=== PATIENT | male | born 1995 | race Two or more races ===

== ENCOUNTER 2024-03-30 03:15 | Emergency (ER) | payer OTHER, SELFPAY ==
[2024-03-30 03:36] VITALS: BP 126/80; PULSE 115; RESP 18; TEMP 37.1; O2SAT 95
--- NOTE | 2024-03-30 03:55 | XR_ITS ---
Examination: CT abdomen with intravenous contrast CT pelvis with intravenous contrast 2-D coronal reconstructions 2-D sagittal reconstructions Date and time of exam:March 30, 2024 0532 hrs. Indications: Abdominal pain diarrhea beginning 3 days ago. CTDI: vol (mGy) 7.24 DLP: (mGycm) 452 Technique: Multiple axial sections of the abdomen and pelvis have been obtained. 64 slice high-resolution scanner used. 3 mm axial sections have been obtained, post intravenous injection 60 cc [id number] 2-D sagittal, coronal reconstructions obtained. Low dose protocols were performed. One or more of the following dose reduction techniques were used; automated exposure control, adjustment of the mA and/or KV according to patient size, use of iterative reconstruction technique. Findings: Liver is mildly irregular in contour, no focal liver or splenic lesions Contracted gallbladder Contrast in the stomach clinical correlation advised No pancreatic mass No renal or ureteral calculi, no hydronephrosis Aorta normal size Normal appendix No bowel obstruction There is mild wall thickening involving the sigmoid colon and rectum No prostatomegaly Urinary bladder intact Impression: Suspect primary hepatocellular disease Contrast in stomach, clinical correlation advised, this is not a CTA study Normal appendix Mild nonspecific colitis rectosigmoid
--- NOTE | 2024-03-30 03:57 | EDRME_ITS ---
Rapid Medical Screening Exam [facility] Arrival date/time: 03/30/24 03:15 29M with history of asthma presents to ED with several days of gen ab pain and non-bloody diarrhea to the point where he is soiling himself. Separately, his asthma is acting up. Patient denies drug/alcohol use () and recent travel. Chief Complaint: Abdominal Pain Vital signs: Vital Signs Temperature 98.7 F 03/30/24 03:36 Pulse Rate 115 H 03/30/24 03:36 Respiratory Rate 18 03/30/24 03:36 Blood Pressure 126/80 03/30/24 03:36 Pulse Oximetry (%) 95 03/30/24 03:36 Oxygen Delivery Method Room Air 03/30/24 03:36
--- NOTE | 2024-03-30 03:57 | XR_ITS ---
Examination: AP chest single view Technique one AP portable upright chest single view Exam date and time: March 30, 2024 0402 hrs. Comparison May 22, 2010 Findings: Mild to moderate hyperexpansion Normal heart size Accentuation bronchovascular markings No lobar pneumonia Impression: Bronchitis pattern
[2024-03-30] MEDS: SODIUM CHLORIDE 0.9% 1000 ML 1,000 ML 999 ML IV (04:11)
[2024-03-30] MEDS: ALBUTEROL/IPRATROPIUM (Duoneb) RT SOL 3 ML NEBU 6 ML INH (04:12)
[2024-03-30] MEDS: DEXAMETHASONE SOD PHOS INJ 10 MG/ML VIAL IV (04:12)
[2024-03-30 04:13] VITALS: PULSE 108; RESP 20; O2SAT 100
[2024-03-30 04:54] LABS: Lactate (Lactic Acid) 1.3 mMol/L (0.4-2.0)
[2024-03-30 04:59] LABS: Basophils % (Auto) 1 % (0-2.5); Eosinophils # (Auto) 0.1 Thou/mm3 (0.0-0.5); Eosinophils % (Auto) 1 % (0-10); Hematocrit 41.6 % (41.0-53.0); Hemoglobin 14.8 g/dL (13.5-16.0); Immature Granulocytes % (Auto) 0 % (0-0); Immature Granulocytes Auto 0.01 Thou/mm3 (0.00-0.00); Lymphocytes % (Auto) 34 % (10-50); Mean Corpuscular HGB Conc 35.6 g/dl (31.0-37.0); Mean Corpuscular Hemoglobin 30.9 pg (25.0-35.0); Mean Corpuscular Volume 87 fL (80-100); Monocytes % (Auto) 17 % (0-12); Neutrophils # (Auto) 2.8 Thou/mm3 (1.8-7.7); Neutrophils % (Auto) 47 % (37-80); Nucleated Red Blood Cell % 0 /100 WBC (0); Platelet Count 145 Thou/mm3 (140-440); RDW Standard Deviation 39.2 fL (35.1-43.9); Red Blood Count 4.79 Miln/mm3 (4.50-5.90); White Blood Count 5.9 Thou/mm3 (3.8-10.6)
[2024-03-30 05:20] LABS: Alanine Aminotransferase 23 U/L (10-49); Albumin, Serum 4.2 gm/dL (3.5-5.0); Albumin/Globulin Ratio 1.7 (1.2-2.2); Alkaline Phosphatase 57 U/L (46-116); Anion Gap 9 (7-16); Aspartate Amino Transferase 20 U/L (0-34); BUN/Creatinine Ratio 13 Ratio (12-20); Bilirubin,Total 0.7 mg/dL (0.3-1.2); Blood Urea Nitrogen 13 mg/dL (9-23); Carbon Dioxide 26.2 mMol/L (20.0-31.0); Chloride 100 mMol/L (98-107); Globulin 2.5 gm/dL (2.3-3.5); Glucose 121 mg/dL (74-106); Lipase 27 U/L (12-53); Osmolality,Calculated 271 (275-295); Sodium 135 mMol/L (136-145); Total Protein 6.7 gm/dL (5.7-8.2); eGFR > 60 See Note
[2024-03-30 05:22] VITALS: BP 122/67; PULSE 116; RESP 16; TEMP 37.6; O2SAT 95
[2024-03-30 05:23] LABS: Potassium 2.7 mMol/L (3.4-5.1)
[2024-03-30] MEDS: POTASSIUM CHLORIDE 20 mEq TABCR 40 MEQ PO ×2 (05:34→07:18)
[2024-03-30] MEDS: ONDANSETRON INJ 2 MG/ML INJ 2 ML 4 MG IV (05:34)
[2024-03-30 06:16] LABS: Magnesium 1.6 mg/dL (1.6-2.6)
[2024-03-30 06:44] LABS: Collection Type, Urine Clean Catch; RBC,Urine 0 /hpf (0-3); WBC,Urine 0 /hpf (0-5)
--- NOTE | 2024-03-30 06:48 | PRELIM_ITS ---
CT scan of the abdomen and pelvis with intravenous contrast (axial sections with sagittal and coronal reformats) March 30, 2024 0532 hoursClinical History: Gen abdominal pain and non-bloody diarrhea; soiling selfComparison: No prior study is available for comparisonFindings:Ground-glass opacities ar e noted in the right lower lobe.The liver, gallbladder, pancreas, spleen, kidneys, and adrenals are u nremarkable.An intraluminal hyperdensity seen in the stomach may represent residual oral contrast fro m the recent examination.No evidence of bowel obstruction. The appendix is within normal limits (imag es [id number], series 2).There is mild thickening versus underdistention of the descending and sigmoid c olon with surrounding hyperemia. In the appropriate clinical setting, the possibility of mild colitis cannot be excluded. Recommend clinical correlation.There is no mesenteric or retroperitoneal adenopa thy.The urinary bladder demonstrates mild diffuse wall thickening with subtle perivesical fat strandi ng. There is no free fluid or free air.The osseous structures are unremarkable.Impression:1. Mild thi ckening versus underdistention of the descending and sigmoid colon. In the appropriate clinical setti ng, the possibility of mild colitis cannot be excluded. Recommend clinical correlation.2. Possible mi ld cystitis.3. Possible intraluminal residual oral contrast in the stomach (limited evaluation for ga strointestinal bleeding). Report Electronically Signed By: Meme David 03/30/2024 6:47:08 AM [EST]
--- NOTE | 2024-03-30 06:51 | EDNOTE_ITS ---
Nausea/Vomit./Diarrhea-RME/HPI General Chief complaint: Abdominal Pain Stated complaint: ABD PAIN, DIARRHEA, ASTHMA ACTING UP Time Seen by Provider: 03/30/24 04:16 Arrival date/time: 03/30/24 03:15 Limitations: no limitations RME / HPI RME / HPI Narrative: 03/30/24 03:15 29M with history of asthma presents to ED with several days of gen ab pain and non-bloody diarrhea to the point where he is soiling himself. Separately, his asthma is acting up. Patient denies drug/alcohol use () and recent travel. DR. TELMA PEREZ ED EVALUATION: 29 year old male with history of asthma presents to the ED for complaint of diarrhea beginning 3 days ago. Diarrhea described as watery in consistency that is nonbloody. States in the last day he is now soiling himself while sleeping which has concerned him. Patient additionally reports feeling short of breath and my asthma is acting up . Denies fevers, chills, sweats, chest pain, abdominal pain, nausea, vomiting, or urinary symptoms. Denies recent travel, eating new/unusual foods, or sick contacts with similar symptoms. Related Data Home Medications ?Medication ?Instructions ?Recorded ?Confirmed albuterol sulfate 90 mcg/actuation 6.7 gm IH [id number] ##0 12/23/08 aerosol inhaler (Proventil HFA) Previous Rx's ?Medication ?Instructions ?Recorded hydroxyzine HCl 25 mg tablet 1 - 2 tab PO [id number] ##30 04/23/12 clotrimazole 1 % topical cream 1 applic topical BID #15 grams 03/05/21 mupirocin 2 % topical ointment 1 applic topical BID #15 grams 03/05/21 albuterol sulfate 90 mcg/actuation 2 puff inhalation Q6H PRN 03/30/24 aerosol inhaler shortness of breath or wheezing #8.5 grams fluticasone 100 mcg-salmeterol 50 1 inh inhalation BID #60 ea 03/30/24 mcg/dose blistr powdr for inhalation (Advair Diskus) magnesium oxide 400 mg PO BID 2 days #4 caps 03/30/24 potassium chloride 20 mEq oral 20 meq PO BID 2 days #4 ea 03/30/24 packet prednisone 50 mg tablet 50 mg PO QDAY 5 days #5 tabs 03/30/24 Allergies Allergy/AdvReac Type Severity Reaction Status Date / Time No Known Allergies Allergy Verified 03/05/21 09:29 Review of Systems Review of Systems Narrative Review of Systems: GEN: No fever, no chills, no weight loss EYES: No discharge, no visual changes, no pain HEENT: No ear pain, no congestion, no sore throat PULM: +shortness of breath, no cough, no congestion CV: No chest pain, no dyspnea on exertion, no palpitations GI: No nausea, no vomiting, +diarrhea, no pain, no constipation : No frequency, no urgency, no dysuria MUSC/SKEL: No joint pain, no back pain SKIN: No rash NEURO: No weakness, no headache Past Medical History Past Medical History CARDIAC: Negative Cardiac Disorders or Congestive Heart Failure RESPIRATORY: Positive Respiratory Disorders and Asthma; Negative Chronic Obstructive Pulmonary Disease (COPD) GENITOURINARY: Negative Renal Disease ENDOCRINE: Negative Diabetes Mellitus Type 1 or Diabetes Mellitus Type 2 HEMATOLOGIC: Negative Sickle Cell Disease Social History SMOKING STATUS: Never smoker ED Exam General Limitations: Present no limitations General appearance: Present alert and in no apparent distress Head Head exam: Present atraumatic, normocephalic and normal inspection Eye Eye exam: Present normal appearance, PERRL and EOMI ENT ENT exam: Present normal exam, normal oropharynx and mucous membranes moist Neck Neck exam: Present normal inspection, full ROM and trachea midline Chest Chest inspection: Present normal inspection and symmetric chest wall rise Respiratory Respiratory exam: Present normal lung sounds bilaterally Cardiovascular Cardiovascular exam: Present regular rate, normal rhythm and normal heart sounds Abdominal Exam Abdominal exam: Present soft and normal bowel sounds Extremities Exam Extremities exam: Present normal inspection and full ROM Back Exam Back exam: Present normal inspection and full ROM Neurological Exam Neurological exam: Present alert, oriented X3 and CN II-XII intact Psychiatric Psychiatric exam: Present normal affect and normal mood Skin Skin exam: Present warm, dry, intact and normal color Course Quality Measures none Orders Category Date Time Status Bedside COVID-19 Antigen Test NOW Care 03/30/24 03:57 Active Bedside Influenza A&B Antigen Test NOW Care 03/30/24 03:[address] Screening NOW Care 03/30/24 03:56 Active Insert IV NOW Care 03/30/24 03:[address] abdomen pelvis w con Stat Exams 03/30/24 03:55 Taken XR chest 1V portable Stat Exams 03/30/24 03:57 Taken CBC Stat Lab 03/30/24 04:40 Completed CMP [Comprehensive Metabolic Panel] Stat Lab 03/30/24 04:40 Completed Drug Screen,Urine Stat Lab 03/30/24 06:41 Received Lactate (Lactic Acid) Stat Lab 03/30/24 04:40 Completed Lipase Stat Lab 03/30/24 04:40 Completed Magnesium Stat Lab 03/30/24 04:40 Completed Urinalysis, C/S if Indicated Stat Lab 03/30/24 06:41 Completed Albuterol/Ipratr Rt Maddy [Duoneb Rt Maddy] Med 03/30/24 03:57 Discontinued 6 ml INH X1 ONE Dexamethasone Inj [Decadron Inj] Med 03/30/24 03:57 Discontinued 10 mg IV X1 ONE Magnesium Oxide [Mag-Ox 400] Med 03/30/24 06:57 Discontinued 400 mg PO X1 ONE Ondansetron Inj [Zofran Inj] Med 03/30/24 05:27 Discontinued 4 mg IV X1 ONE POTASSIUM CHL 10 mEq IVPB [Kcl Ivpb] Med 03/30/24 06:57 Active 10 meq in 100 ml IV X1 Potassium Chloride [K-Dur] Med 03/30/24 05:27 Discontinued 40 meq PO X1 ONE Potassium Chloride [K-Dur] Med 03/30/24 06:56 Discontinued 40 meq PO X1 ONE Sodium Chloride 0.9% 1000 ml [Ns] 1,000 ml Med 03/30/24 03:55 Discontinued IV 999 mls/hr Vital Signs Vital signs: Vital Signs Temperature 98.7 F 03/30/24 03:36 Pulse Rate 115 H 03/30/24 03:36 Respiratory Rate 18 03/30/24 03:36 Blood Pressure 126/80 03/30/24 03:36 Pulse Oximetry (%) 95 03/30/24 03:36 Oxygen Delivery Method Room Air 03/30/24 03:36 Pulse ox is 95% on room air which is adequate. Nausea/Vomiting/Diarrhea MDM Narrative MDM Narrative:: Jerrica Carrillo am scribing for and in the presence of Dr. Chan. Patient data External records reviewed:: [facility] previous records (I reviewed ED visit on 03/05/2021) Clinical information provided by:: patient Social determinants that could affect healthcare access:: none Patient has the following chronic illnesses:: None How is presenting disease/condition affected by chronic disease/condition?: no chronic disease Evaluation data The following diagnostics were reviewed and interpreted by me:: lab results and radiology exam(s) Lab and/or radiology exams considered but not ordered:: None Interpretation Summary: Ordering Physician: Date of Service: Procedure(s): Accession Number(s): cc: ~ CT scan of the abdomen and pelvis with intravenous contrast (axial sections with sagittal and coronal reformats) March 30, 2024 0532 hours Clinical History: Gen abdominal pain and non-bloody diarrhea; soiling self Comparison: No prior study is available for comparison Findings: Ground-glass opacities are noted in the right lower lobe. The liver, gallbladder, pancreas, spleen, kidneys, and adrenals are unre markable. An intraluminal hyperdensity seen in the stomach may represent residual oral contrast from the recent examination. No evidence of bowel obstruction. The appendix is within normal limits (images [id number], series 2). There is mild thickening versus underdistention of the descending and sigmoid colon with surrounding hyperemia. In the appropriate clinical setting, the possibility of mild colitis cannot be excluded. Recommend clinical correlation. There is no mesenteric or retroperitoneal adenopathy. The urinary bladder demonstrates mild diffuse wall thickening with subtle perivesical fat stranding. There is no free fluid or free air. The osseous structures are unremarkable. Impression: 1. Mild thickening versus underdistention of the descending and sigmoid colon. In the appropriate clinical setting, the possibility of mild colitis cannot be excluded. Recommend clinical correlation. 2. Possible mild cystitis. 3. Possible intraluminal residual oral contrast in the stomach (limited evaluation for gastrointestinal bleeding). Report Electronically Signed By: Meme David 03/30/2024 6:47:08 AM [EST] Medications / Prescriptions Medications / Prescriptions considered but not ordered:: None Medication administrations:: Medication Administration History Potassium Chloride (Kcl Ivpb) 10 meq in 100 mls @ 100 mls/hr IV X1 ONE Stop: 03/30/24 07:56 Discontinued Medications Albuterol/Ipratropium (Albuterol/Ipratropium (Duoneb) Rt Maddy 3 Ml Nebu) 6 ml INH X1 ONE Stop: 03/30/24 03:58 Last Admin: 03/30/24 04:12 Dose: 6 ml Documented By: PAR Dexamethasone Sodium Phosphate (Dexamethasone Sod Phos Inj 10 Mg/Ml Vial) 10 mg IV X1 ONE Stop: 03/30/24 03:58 Last Admin: 03/30/24 04:12 Dose: 10 mg Documented By: PEARL Sodium Chloride (Ns) 1,000 mls @ 999 mls/hr IV .Q1H1M ONE Stop: 03/30/24 04:55 Last Infusion: 03/30/24 05:15 Dose: Infused Documented By: Admin: 03/30/24 04:11 Dose: 999 mls/hr Documented By: PEARL Magnesium Oxide (Magnesium Oxide 400 Mg Tablet) 400 mg PO X1 ONE Stop: 03/30/24 06:58 Ondansetron HCl (Ondansetron Inj 2 Mg/Ml Inj 2 Ml) 4 mg IV X1 ONE; Protocol Stop: 03/30/24 05:28 Last Admin: 03/30/24 05:34 Dose: 4 mg Documented By: ZEUS Potassium Chloride (Potassium Chloride 20 Meq Tabcr) 40 meq PO X1 ONE Stop: 03/30/24 05:28 Last Admin: 03/30/24 05:34 Dose: 40 meq Documented By: ZEUS Potassium Chloride (Potassium Chloride 20 Meq Tabcr) 40 meq PO X1 ONE Stop: 03/30/24 06:57 See above Consultations Consultation(s) initiated? (list below): No Diagnosis Nausea Differential Diagnosis: food poisoning, gastroenteritis, drug-induced nausea and vomiting and dehydration Most likely diagnosis given after review of the tests above:: Diarrhea Asthma exacerbation Acute hypokalemia Admission Indicated Admission indicated?: not indicated Admission Request Was there a request for admission?: No Disposition Plan Disposition Plan: Discharge Discharge Attestation Discharge Attestation: The patient and all family members were given an opportunity to ask questions and understood the discharge instructions. Discharge instructions specifically effects, indications for sooner follow up or return to the emergency department, and the expected course of current diagnosis. Patient condition: Stable Discharge Plan Plan Patient Disposition: HOME (Self Care) Prescriptions/Referrals Prescriptions/Med Rec: New albuterol sulfate 90 mcg/actuation HFA aerosol inhaler 2 puff inhalation Q6H PRN (Reason: shortness of breath or wheezing) Qty: 8.5 0RF prednisone 50 mg tablet 50 mg PO QDAY 5 Days Qty: 5 0RF fluticasone propion-salmeterol [Advair Diskus] 100-50 mcg/dose blister with device 1 inh inhalation BID Qty: 60 0RF potassium chloride 20 mEq packet 20 meq PO BID 2 Days Qty: 4 0RF magnesium oxide 400 mg magnesium capsule 400 mg PO BID 2 Days Qty: 4 0RF No Action albuterol sulfate [Proventil HFA] 6.7 GM HFA aerosol inhaler 6.7 gm IH [id number] Qty: 0 Patient Comments: 2 PUFFS Q 4 HOURS NEEDED hydroxyzine HCl 25 MG tablet 1 - 2 tab PO [id number] Qty: 30 0RF mupirocin 2 % ointment 1 applic topical BID Qty: 15 0RF clotrimazole 1 % cream 1 applic topical BID Qty: 15 0RF Referrals: [facility] [Outside] - In 1 week Problem List Clinical Impression: Diarrhea, Asthma exacerbation, Acute hypokalemia Patient/Caregiver Discharge Instructions Discharge Activity: activity as tolerated Education Materials: Treating Diarrhea, Asthma Action Plan, Discharge Instructions for ..., ED Diarrhea, Unknown Cause, ED Hypokalemia, Asthma Additional Instructions: Today your labs showed that your potassium level was low because of your diarrhea. So we gave you a pill of potassium here in the ER and also some potassium in your IV. You should take the potassium pills that are waiting for you at your pharmacy as directed for the next 2 days. Also your magnesium level was somewhat low. We gave you a pill of magnesium here in the ER and you should take the pills that are waiting for you at your pharmacy for the next 2 days until they are completely gone. This was also due to your diarrhea. The asthma medicines that are waiting for you at the pharmacy include an albuterol rescue inhaler, prednisone for 5 days and also a medicine called Advair. This is an inhaled steroid. You should take Advair once every morning when you wake up and once at night before you go to sleep. After you take this medicine you should brush her teeth otherwise you will wind up with thrush. If you have any further problems please return to the ER and we will help you Otherwise please follow-up with a [facility] Print Language: Egyptian Stand Alone Forms: Tessa Award Info., Patient Portal Info Letter
[2024-03-30 06:53] LABS: Bilirubin,Urine Negative (Negative); Blood,Urine Negative (Negative); Clarity,Urine Clear (Clear/Hazy); Color,Urine Lt-Yellow (Lt Yel-Yel); Culture Indicated,Urine Not Indicated; Glucose, Urine Negative (Negative); Ketones,Urine 1+ (Negative); Leukocyte Esterase,Urine Negative (Negative); Nitrite,Urine Negative (Negative); Protein,Urine Trace (Neg - Trace); Specific Gravity,Urine 1.035 (1.001-1.035); Squamous Epithelial Cell,Urine < 1 /hpf (0-5); Urobilinogen,Urine Negative mg/dL (0.0-1.0)
[2024-03-30 07:11] LABS: Amphetamine/Methamp Scrn,U Negative (Negative); Barbiturate Screen,Urine Negative (Negative); Benzodiazepines Screen,Urine Negative (Negative); Benzoylecgonine Screen, Ur Negative (Negative); Fentanyl Screen,Urine Negative (Negative); Opiate Screen,Urine Negative (Negative); THC Screen,Urine Negative (Negative)
[2024-03-30] MEDS: MAGNESIUM OXIDE 400 MG TABLET PO (07:17)
[2024-03-30] MEDS: POTASSIUM CHL 10 mEq IVPB 10 MEQ/100 ML BAG 100 MEQ IV (07:18)
[2024-03-30 07:25] VITALS: BP 120/69; PULSE 110; RESP 18; TEMP 36.9; O2SAT 95
[2024-03-30 07:29] VITALS: PULSE 110
[2024-03-30 08:07] VITALS: BP 119/71; PULSE 109; RESP 17; TEMP 36.8; O2SAT 95
== END 2024-03-30 08:32 | disposition home or self-care (01) ==
PROVIDERS: Physician Assistant; Emergency Provider Emergency Medicine
DX: J45.901 Unspecified asthma with (acute) exacerbation (principal); E87.6 Hypokalemia; R19.7 Diarrhea, unspecified
CPT/HCPCS: 36415; 71045; 74177; 80053; 80307; 81001; 83605; 83690; 83735; 85025; 87400; 87811; 94640; 96361; 96365; 96375; 99285; A4649; A9270; J1100; J2405; J3480; J7030; Q9967